=== PATIENT | male | born 1960 | race Caucasian/White ===

== ENCOUNTER 2021-01-11 13:49 | Day surgery (SDC) | payer OTHER ==
[~2021-01-11] VITALS: Ht 177.8 cm; Wt 92.1 kg
[~2021-01-11 13:49] MED LIST: CYMB60CA3 PO; FLOM0.4C39 PO; HYDR-643 PO; LISI20TA33 PO; LR 1,000 ML IV ONE; NS 1,000 ML IV ONE; PRIL20TA2 PO; PROBCAP14 PO; WELLTAB40 PO
[2021-01-11] MEDS ORDERED: propofoL 200 MG/20 ML VIAL As Ordered ONE (17:24)
[2021-01-11] MEDS ORDERED: LIDOCAINE 2% 100MG/5ML SDV (FOR ANES.) As Ordered ONE (17:24)
--- NOTE | 2021-01-11 18:02 | ROOR ---
Patient Name: Teo Gage Procedure Date: 01/11/2021 4:49 PM Date of : 1960 Age: 60 Gender: Male Note Status: Finalized Procedure: Colonoscopy Indications: Screening for colorectal malignant neoplasm, Incidental - Hematochezia Providers: Dylon Leon MD Referring MD: Maria Fernanda Milan Do Requesting Provider: Medicines: Monitored Anesthesia Care Complications: No immediate complications. Procedure: Pre-Anesthesia Assessment: - Prior to the procedure, a History and Physical was performed, and patient medications and allergies were reviewed. The patient is competent. The risks and benefits of the procedure and the sedation options and risks were discussed with the patient. All questions were answered and informed consent was obtained. Patient identification and proposed procedure were verified by the physician, the nurse and the anesthesiologist in the procedure room. Mental Status Examination: alert and oriented. Airway Examination: normal oropharyngeal airway and neck mobility. Respiratory Examination: clear to auscultation. CV Examination: normal. Prophylactic Antibiotics: The patient does not require prophylactic antibiotics. Prior Anticoagulants: The patient has taken no previous anticoagulant or antiplatelet agents. ASA Grade Assessment: II - A patient with mild systemic disease. After reviewing the risks and benefits, the patient was deemed in satisfactory condition to undergo the procedure. The anesthesia plan was to use monitored anesthesia care (MAC). Immediately prior to administration of medications, the patient was re-assessed for adequacy to receive sedatives. The heart rate, respiratory rate, oxygen saturations, blood pressure, adequacy of pulmonary ventilation, and response to care were monitored throughout the procedure. The physical status of the patient was re-assessed after the procedure. The Colonoscope was introduced through the anus and advanced to the terminal ileum, with identification of the appendiceal orifice and IC valve. The colonoscopy was performed without difficulty. The patient tolerated the procedure well. The quality of the bowel preparation was good. The terminal ileum, ileocecal valve, appendiceal orifice, and rectum were photographed. Scope insertion time was 2 minutes. Scope withdrawal time was 9 minutes. The total duration of the procedure was 12 minutes. Findings: The perianal and digital rectal examinations were normal. The terminal ileum appeared normal. A 15 mm polyp was found in the ascending colon. The polyp was sessile. The polyp was removed with a hot snare. Resection and retrieval were complete. Verification of patient identification for the specimen was done by the physician and nurse using the patient's name, date and medical record number. Estimated blood loss was minimal. A 4 mm polyp was found in the rectum. The polyp was sessile. The polyp was removed with a cold biopsy forceps. Resection and retrieval were complete. Multiple small and large-mouthed diverticula were found in the sigmoid colon. There was no evidence of diverticular bleeding. Non-bleeding external and internal hemorrhoids were found during retroflexion. The hemorrhoids were medium-sized. Impression: - The examined portion of the ileum was normal. - One 15 mm polyp in the ascending colon, removed with a hot snare. Resected and retrieved. - One 4 mm polyp in the rectum, removed with a cold biopsy forceps. Resected and retrieved. - Moderate diverticulosis in the sigmoid colon. There was no evidence of diverticular bleeding. - Non-bleeding external and internal hemorrhoids. Recommendation: - Patient has a contact number available for emergencies. The signs and symptoms of potential delayed complications were discussed with the patient. Return to normal activities tomorrow. Written discharge instructions were provided to the patient. - High fiber diet. - Continue present medications. - Await pathology results. - Repeat colonoscopy in 3 years for surveillance based on pathology results. - Return to GI clinic if persistent symptoms or new symptoms. - Return to primary care physician. Procedure Code(s): --- Professional --- 22917, Colonoscopy, flexible; with removal of tumor(s), polyp(s), or other lesion(s) by snare technique 96172, 59, Colonoscopy, flexible; with biopsy, single or multiple Diagnosis Code(s): --- Professional --- Z12.11, Encounter for screening for malignant neoplasm of colon K64.8, Other hemorrhoids K63.5, Polyp of colon K62.1, Rectal polyp K57.30, Diverticulosis of large intestine without perforation or abscess without bleeding CPT copyright 2019 [employer]. All rights reserved. The codes documented in this report are preliminary and upon clinical trial coordinator review may be revised to meet current compliance requirements. Dylon Leon MD Dylon Leon MD 01/11/2021 6:01:53 PM Electronically signed by Dylon Leon MD Number of Addenda: 0 Note Initiated On: 01/11/2021 4:49 PM Estimated Blood Loss: Estimated blood loss was minimal.
--- NOTE | 2021-01-11 18:09 | ROOR ---
Patient Name: Teo Gage Procedure Date: 01/11/2021 4:51 PM Date of : 1960 Age: 60 Gender: Male Note Status: Finalized Procedure: Upper GI endoscopy Indications: Suspected gastro-esophageal reflux disease Providers: Dylon Leon MD Referring MD: Maria Fernanda Milan Do Requesting Provider: Medicines: Monitored Anesthesia Care Complications: No immediate complications. Procedure: Pre-Anesthesia Assessment: - Prior to the procedure, a History and Physical was performed, and patient medications and allergies were reviewed. The patient is competent. The risks and benefits of the procedure and the sedation options and risks were discussed with the patient. All questions were answered and informed consent was obtained. Patient identification and proposed procedure were verified by the physician, the nurse and the anesthesiologist in the procedure room. Mental Status Examination: normal. Airway Examination: normal oropharyngeal airway and neck mobility. Respiratory Examination: clear to auscultation. CV Examination: normal. Prophylactic Antibiotics: The patient does not require prophylactic antibiotics. Prior Anticoagulants: The patient has taken no previous anticoagulant or antiplatelet agents. ASA Grade Assessment: II - A patient with mild systemic disease. After reviewing the risks and benefits, the patient was deemed in satisfactory condition to undergo the procedure. The anesthesia plan was to use monitored anesthesia care (MAC). Immediately prior to administration of medications, the patient was re-assessed for adequacy to receive sedatives. The heart rate, respiratory rate, oxygen saturations, blood pressure, adequacy of pulmonary ventilation, and response to care were monitored throughout the procedure. The physical status of the patient was re-assessed after the procedure. The Endoscope was introduced through the mouth, and advanced to the second part of duodenum. The upper GI endoscopy was accomplished without difficulty. The patient tolerated the procedure well. Findings: The examined esophagus was normal. Scattered moderate inflammation characterized by erythema and granularity was found in the gastric antrum. Biopsies were taken with a cold forceps for Helicobacter pylori testing. Verification of patient identification for the specimen was done by the physician and nurse using the patient's name, date and medical record number. Estimated blood loss was minimal. The duodenal bulb and second portion of the duodenum were normal. Impression: - Normal esophagus. - Gastritis. Biopsied. - Normal duodenal bulb and second portion of the duodenum. Recommendation: - Patient has a contact number available for emergencies. The signs and symptoms of potential delayed complications were discussed with the patient. Return to normal activities tomorrow. Written discharge instructions were provided to the patient. - High fiber diet. - Continue present medications. - Await pathology results. - Follow an antireflux regimen. - Telephone GI clinic for pathology results in 2 weeks. - Return to GI clinic if persistent symptoms or new symptoms. - Return to primary care physician. Procedure Code(s): --- Professional --- 69457, Esophagogastroduodenoscopy, flexible, transoral; with biopsy, single or multiple Diagnosis Code(s): --- Professional --- K29.70, Gastritis, unspecified, without bleeding CPT copyright 2019 [employer]. All rights reserved. The codes documented in this report are preliminary and upon vision rehabilitation therapist review may be revised to meet current compliance requirements. Dylon Leon MD Dylon Leon MD 01/11/2021 6:08:38 PM Electronically signed by Dylon Leon MD Number of Addenda: 0 Note Initiated On: 01/11/2021 4:51 PM Estimated Blood Loss: Estimated blood loss was minimal.
[2021-01-11 18:30] VITALS: BP 136/79
== END 2021-01-11 18:35 | disposition home or self-care (01) ==
LOC: M SDC 13:49
PROVIDERS: ATTEND Internal Medicine Gastroenterology
DX: Z12.11 Encounter for screening for malignant neoplasm of colon (principal); K29.70 Gastritis, unspecified, without bleeding; K57.30 Diverticulosis of large intestine without perforation or abscess without bleeding; K21.9 Gastro-esophageal reflux disease without esophagitis; K64.8 Other hemorrhoids; K62.1 Rectal polyp; K63.5 Polyp of colon; I10 Essential (primary) hypertension; F43.10 Post-traumatic stress disorder, unspecified; F41.9 Anxiety disorder, unspecified; F32.9 Major depressive disorder, single episode, unspecified; N40.0 Benign prostatic hyperplasia without lower urinary tract symptoms; Z79.899 Other long term (current) drug therapy

== ENCOUNTER → 2021-02-01 | Outpatient (REF) ==
[~2021-02-01] MED LIST changes: -CYMB60CA3 PO; +CYMB60CA4 PO; -LR 1,000 ML IV ONE; -NS 1,000 ML IV ONE
--- NOTE | 2021-02-02 03:26 | REP ---
INDICATION: PAIN,SOB,ARTHRITIS COMPARISON: None. TECHNIQUE: AP, lateral, coned-down views of the lumbar spine. FINDINGS: Alignment and lordosis maintained. No acute fracture/compression injury or subluxation. Mild to moderate multilevel degenerative changes include elements of endplate sclerosis, disc space narrowing, marginal osteophytosis and facet hypertrophy. Findings most pronounced at L1-2, L2-3. And L4-5 IMPRESSION: 1. No acute fracture / compression injury or subluxation. 2. [id number] multilevel degenerative spondylosis. <Electronically signed by Frederick Ayoub > 02/02/21 [id number]
--- NOTE | 2021-02-02 03:27 | REP ---
INDICATION: PAIN,SOB,ARTHRITIS. COMPARISON: None. TECHNIQUE: PA, Kamara, lateral views. FINDINGS: Sinuses are well aerated and clear. No obvious mucosal thickening. No fluid level. No significant foreign body. Surrounding osseous structures are intact and normal. IMPRESSION: Normal sinus radiograph series. <Electronically signed by Frederick Ayoub > 02/02/21 [id number]
--- NOTE | 2021-02-02 03:27 | REP ---
INDICATION: PAIN,SOB,ARTHRITIS COMPARISON: None. TECHNIQUE: PA and lateral. FINDINGS: The mediastinum and cardiac silhouette are normal. The lung arango are clear and without acute consolidation, effusion, or pneumothorax. The skeletal structures are intact and normal. IMPRESSION: No acute cardiopulmonary process. <Electronically signed by Frederick Ayoub > 02/02/21 0329
--- NOTE | 2021-02-02 03:29 | REP ---
INDICATION: PAIN,SOB,ARTHRITIS COMPARISON: None. TECHNIQUE: AP and lateral left forearm FINDINGS: Osseous structures, joint spaces, and surrounding soft tissues appear essentially age-appropriate and within normal limits. IMPRESSION: Age-appropriate left forearm radiographs.. <Electronically signed by Frederick Ayoub > 02/02/21 0329
--- NOTE | 2021-02-02 03:29 | REP ---
INDICATION: PAIN,SOB,ARTHRITIS COMPARISON: None. TECHNIQUE: AP and lateral right elbow FINDINGS: Lateral view demonstrates small curvilinear calcifications adjacent to the radial head poorly identified on AP view. These appear well corticated and chronic. Findings may represent small loose bodies within the joint space or chronic osteophyte related to old injury. No obvious acute fracture or dislocation. The joint space appears otherwise normal. IMPRESSION: Curvilinear calcifications adjacent to the radial head as described above. <Electronically signed by Frederick Ayoub > 02/02/21 [id number]
--- NOTE | 2021-02-02 03:34 | REP ---
INDICATION: PAIN,SOB,ARTHRITIS COMPARISON: None. TECHNIQUE: Internal rotation, external rotation, and Y view right and left shoulder. FINDINGS: Left shoulder demonstrates mild cortical irregularity at the acromioclavicular joint. The subacromial space is normal. A subtle defect along the 4/5 o'clock position of the glenoid rim disrupting the normal rounded appearance is suggested and may represent old injury. The humeral head appears intact and normal. No periarticular calcifications or loose bodies are identified. No evidence for acute fracture or dislocation. Right shoulder demonstrates relatively normal acromioclavicular joint. The subacromial space is normal. The glenoid rim demonstrates subtle sclerotic change. The humeral head is intact and normal. No periarticular calcifications or loose bodies are identified. No evidence for fracture or dislocation. IMPRESSION: Relatively age-related changes with possible sequelae of old injury to the left shoulder. <Electronically signed by Frederick Ayoub > 02/02/21 [id number]
== END ==
LOC: M PLAIMG 12:10
PROVIDERS: ATTEND Internal Medicine
DX: R06.02 Shortness of breath (principal); M25.521 Pain in right elbow; M25.522 Pain in left elbow; M54.50 Low back pain, unspecified; M25.511 Pain in right shoulder; M25.512 Pain in left shoulder